=== PATIENT | male | born 1980 | race Two or more races ===

== ENCOUNTER → 2024-05-05 | Outpatient (CLI) | payer MEDICAID ==
[2024-05-05 12:40] LABS: Urine Bacteria None Seen /hpf (None Seen)
[2024-05-05 13:18] LABS: Urine Blood Negative /uL (Negative); Urine Clarity Clear (Clear); Urine Color Light-Yellow (Yellow); Urine Protein, UAD Negative (Negative); Urine Specific Gravity 1.024 (1.001-1.035); Urine Urobilinogen Normal (Negative); Urine WBC < 1 /HPF (0-3)
[2024-05-05 13:19] LABS: Urine Squamous Epithelial Cell Few /hpf (<5)
== END | disposition home or self-care (01) ==
LOC: LAB 12:36
PROVIDERS: ATTEND Urology
DX: R35.1 Nocturia (principal)
CPT/HCPCS: 81001; 87086

== ENCOUNTER 2024-05-08 08:29 | Day surgery (SDC) | payer MEDICAID ==
[2024-05-05 11:36] LABS: Urine Bacteria None Seen /hpf (None Seen)
[2024-05-05 11:49] LABS: Hematocrit 43.5 % (41.0-53.0); Hemoglobin 14.8 g/dL (13.5-17.5); Mean Corpuscular Hemoglobin 30.6 pg (28.0-32.0); Mean Corpuscular Hgb Conc. 34.1 g/dL (32.0-36.0); Mean Corpuscular Volume 89.5 fL (80.0-100.0); Platelet Count (auto) 350 10^3/uL (140-450); Red Blood Cells 4.85 10^6/uL (4.5-5.90); Red Cell Distribution Width 13.6 % (11.8-14.3); White Blood Cell 7.6 10^3/uL (4.4-10.8)
[2024-05-05 12:00] LABS: Band Neutrophils % (manual) 0; Basophils % (manual) 0 (0.0-2.0); Blast Cells 0; Metamyelocytes % 0; Myelocytes % 0; Promyelocytes % 0
[2024-05-05 12:01] LABS: INR 1.02 (0.9-1.15); Partial Thromboplastin Time 29.6 SEC (24.5-34.5); Prothrombin Time 10.8 sec (9.3-11.8)
[2024-05-05 12:19] LABS: Urine Blood Negative /uL (Negative); Urine Clarity Clear (Clear); Urine Color Light-Yellow (Yellow); Urine Protein, UAD Negative (Negative); Urine Specific Gravity 1.024 (1.001-1.035); Urine Squamous Epithelial Cell FEW /hpf (<5); Urine Urobilinogen Normal (Negative); Urine WBC < 1 /HPF (0-3)
[2024-05-05 12:32] LABS: Eosinophils % (manual) 16 (0-7); Lymphocytes % (manual) 37 (10.0-50.0); Monocytes % (manual) 10 (0-12); Platelet Estimate Adequate; RBC Morphology Normal; Reactive Lymphocytes 2
[2024-05-05 12:57] LABS: Alanine Aminotransferase 28 U/L (7-40); Alkaline Phosphatase 58 U/L (46-116); Anion Gap 8 (5-15); BUN/Creatinine Ratio 21.3 (10.0-20.0); Blood Urea Nitrogen 13 mg/dL (9-23); Calcium 9.5 mg/dL (8.7-10.4); Carbon Dioxide 25 mmol/L (20-31); Chloride 107 mmol/L (98-107); Glucose 99 mg/dL (74-106); Potassium 4.1 mmol/L (3.5-5.1); Sodium 140 mmol/L (136-145); Total Protein 7.4 g/dL (5.7-8.2)
[2024-05-05 12:58] LABS: Albumin 4.6 g/dL (3.2-4.8); Aspartate Aminotransferase 22 U/L (13-40); Bilirubin, Total 0.6 mg/dL (0.2-1.0)
[~2024-05-08] VITALS: Ht 177.8 cm; Wt 99.8 kg
[~2024-05-08 08:29] MED LIST: ceFAZolin 2 GM/D5W100ml 100 ML IV ONE
[2024-05-08] MEDS ORDERED: KETAMINE 50mg/ML 1ml syringe ONE (08:44)
[2024-05-08] MEDS ORDERED: MIDAZOLAM HCL 2MG/2ML 2ml VIAL (1mg/ml) ONE (08:44)
[2024-05-08] MEDS ORDERED: ONDANSETRON HCL 4 MG/2 ML VIAL ONE (08:45)
[2024-05-08] MEDS ORDERED: GLYCOPYRROLATE 0.2 MG/ML 1ML VIAL ONE (08:45)
[2024-05-08] MEDS ORDERED: KETOROLAC TROMETH 30 MG/ML 1ML VIAL ONE (08:45)
[2024-05-08] MEDS ORDERED: PROPOFOL 10 MG/ML 20 ML IV ONE (08:45)
[2024-05-08] MEDS ORDERED: fentaNYL CITRATE 100 MCG/2 ML VL ONE (08:53)
--- NOTE | 2024-05-08 09:59 | DVHDS2 ---
New Physician D'charge PN Admitting Diagnosis Admitting Diagnosis Desired sterilization Discharge Diagnosis Same Operations or Procedures Vasectomy Reason(s) For Hospitalization Surgery Treatment Plan Discharge Condition of Discharge Fair Disposition Home Discharge Instructions Diet: Regular Activity: Light activity Activity comment: As tolerated Medications: Given Follow Up Care Follow Up/Referral: Sperm count in two months Discharge Statement: "Patient was advised to return to the ER or call 911 if any headaches, dizziness, shortness of breath, chest pain, abdominal pain, bleeding, fevers, or worsening of medical condition. Patient was counseled about treatment plan, medications, possible side effects, patientverbalized understanding. All questions were answered to the best of my ability. This discharge took greater then 30 minutes in planning, reviewing documentation, counseling the patient, and discussing with other team members." UMESH CANTU MD May 08, 2024 09:59
[2024-05-08] MEDS: LIDOCAINE W/ EPINEPHRINE 1% 20ML VIAL ONE (10:05)
[2024-05-08 10:21] VITALS: PULSE 78; RESP 14; TEMP 98.1; O2SAT 98
[2024-05-08] MEDS ORDERED: ONDANSETRON HCL 4 MG/2 ML VIAL IV ONE (10:30)
[2024-05-08] MEDS ORDERED: HYDROmorphone HCL 2 MG/ML VL/or syr IV PRN (10:30)
[2024-05-08 11:06] VITALS: BP 118/74; PULSE 56; RESP 15; O2SAT 98
== END 2024-05-08 11:15 | disposition home or self-care (01) ==
LOC: SUR 08:29
PROVIDERS: ATTEND Urology
DX: Z30.2 Encounter for sterilization (principal); Z98.890 Other specified postprocedural states
CPT/HCPCS: 36415; 55250; 80053; 81001; 85007; 85027; 85610; 85730; 87086; 88305; J1885; J2250; J2405; J2704; J3010